=== PATIENT | male | born 1990 | race African-American/Black ===

== ENCOUNTER 2017-07-12 02:30 | Emergency (ER) | payer SELFPAY ==
[~2017-07-12] VITALS: Ht 162.6 cm; Wt 59.0 kg
[2017-07-12 04:01] VITALS: BP 117/61
[2017-07-12 06:01] LABS: CLARITY URINE CLEAR (CLEAR); COLOR URINE YELLOW (YELLOW); GLUCOSE URINE NEGATIVE (NEGATIVE); KETONES URINE TRACE (NEGATIVE); LEUKOCYTE ESTERASE URINE NEGATIVE (NEGATIVE); NITRITE URINE NEGATIVE (NEGATIVE); OCCULT BLOOD URINE 3+ (NEGATIVE); PROTEIN URINE 1+ (NEGATIVE); SPECIFIC GRAVITY URINE 1.031 (1.005-1.030)
[2017-07-12 06:23] LABS: *AMPHETAMINES SCREEN URINE PRESUMTIVE POSITIVE (NEGATIVE); *BENZODIAZEPINES SCREEN URINE NEGATIVE (NEGATIVE); *COCAINE SCREEN URINE NEGATIVE (NEGATIVE); CANNABINOID URINE SCREEN NEGATIVE (NEGATIVE); METHADONE URINE SCREEN NEGATIVE (NEGATIVE); OPIATES URINE SCREEN NEGATIVE (NEGATIVE); PHENCYCLIDINE URINE SCREEN NEGATIVE (NEGATIVE)
[2017-07-12 07:27] LABS: *BARBITURATES SCREEN URINE NEGATIVE (NEGATIVE)
== END 2017-07-12 07:23 | disposition home or self-care (01) ==
LOC: ER 02:30
DX: F15.10 Other stimulant abuse, uncomplicated (principal); F17.200 Nicotine dependence, unspecified, uncomplicated
CPT/HCPCS: 80305; 81001; 99284; Z7610